=== PATIENT | female | born 1955 | race Caucasian/White ===

== ENCOUNTER 2024-12-11 15:27 | Inpatient (IN) | payer MEDICARE, SELFPAY ==
[2024-12-11] VITALS (9 sets, daily range): BP systolic 112–140; BP diastolic 71–87; BMI 20.1; BMI 20.3
[2024-12-11 11:28] LABS: Hematocrit 42.8 % (37.0-47.0); Hemoglobin 14.4 g/dL (12.0-16.0); Mean Corp Hgb Conc. 33.6 g/dL (33.0-37.0); Mean Corpuscular Hgb 29.9 pg (27.0-31.0); Mean Corpuscular Volume 88.8 fL (81.0-99.0); Mean Platelet Volume 9.9 fL (7.4-10.4); Platelet Count 280 10^3/uL (130-400); Red Blood Cell Count 4.82 10^6/uL (4.20-5.40); Red Cell Dist. Width 12.8 % (11.5-14.5); White Blood Cell Count 26.2 10^3/uL (4.8-10.8)
[2024-12-11 11:38] LABS: % Basophils 0.3 % (0-2); % Lymphocytes 3.6 % (20.5-51.1); % Monocytes 4.4 % (1.7-9.3); % Neutrophils 88.7 % (42.2-75.2); Absolute Basophils 0.1 10^3/uL (0-0.2); Absolute Immature Granulocytes 0.8 10^3/uL (0-0.05); Absolute Monocytes 1.1 10^3/uL (0.1-0.6); Absolute Neutrophils 23.2 10^3/uL (1.4-6.5); Nucleated Red Blood Cells % 0 %
[2024-12-11 11:42] LABS: ALT (SGPT) 31 U/L (0-35); AST (SGOT) 43 U/L (14-36); Albumin 4.8 g/dl (3.5-5.0); Alkaline Phosphatase 103 U/L (38-126); Blood Urea Nitrogen 16 mg/dl (7-17); Calcium 9.9 mg/dl (8.4-10.2); Carbon Dioxide 26 mmol/L (22-30); Estimated Creatinine Clearance 72 ml/min; Glucose 174 mg/dl (70-99); Potassium 3.4 mmol/L (3.5-5.1); Sodium 142 mmol/L (135-145); Total Bilirubin 1.2 mg/dl (0.2-1.3); Total Protein 7.5 g/dl (6.3-8.2); eGFR > 60.00
[2024-12-11] MEDS: ATIVAN 1 MG IV (12:06)
--- NOTE | 2024-12-11 12:06 | ED.GENMED ---
History of Present Illness
General
Chief Complaint: Seizure
Source: care program resident
Time Seen by Provider: 12/11/24 11:14
History of Present Illness
History of Present Illness:
69-year-old female with past medical history of dementia presenting to the ER via EMS from home with caregiver who is also power of family law attorney after patient reportedly had a seizure where the caregiver describes the patient staring into the distance,
falling to the ground and becoming very rigid with symptoms lasting about for 5 minutes and resolving spontaneously however patient with a continued postictal state. Caregiver notes that patient first had this seizure-like activity a little over 3
months ago and was seen at [facility] where workup was completed and patient discharged home on antiseizure medications however due to her dementia/chronic medical condition is not able to tolerate any oral medication and caregiver has been
unable to give the patient's the usual medication. Caregiver notes that patient was in her otherwise usual state of health prior to the seizure today. No reported fevers. Caregiver does note that they were unable to get an MRI at [place] due to
patient's inability to cooperate and they ultimately decided to not pursue any further testing as caregiver did not feel patient would be able to tolerate further testing
Past History
Past History
ED Past Medical History: Psychiatric (depression) and Other (osteoarthritis)
ED Past Surgical History: and Orthopedic (bilateral hip replacements.)
Patient has exhibited threatening behavior?: No
Social History
Tobacco: Non-smoker
Alcohol: None
Drug: None
Personal:
Living: other (Caregiver)
Review of Systems
Review of Systems
All Other Systems: ROS reviewed and negative except as documented in HPI and ROS
Phy Exam
Physical Exam
Physical Exam:
GENERAL: Alert , in no apparent distress., Non cooperative, does not answer any questions but is reportedly at baseline per caregiver
HEAD: Normocephalic atraumatic
EYE: Clear conjunctiva
NECK: Supple
ENT: o/p clr, mmm. Small superficial laceration to right anterolateral tongue without any active bleeding, dried blood around the lips
CARDIAC: tachycardic rate and rhythm
LUNGS: Clear breath sounds bilaterally, no acute respiratory distress, no wheezes/rales/rhonchi
ABDOMEN: Soft, without focal tenderness, no r/g, no cvat
NEUROLOGICAL: Alert but unable to assess orientation, does not follow commands
SKIN: Warm and dry, skin intact.
MUSCULOSKELETAL: No edema, well perfused.
PSYCH: Normal and appropriate interaction.
Scores
Heart Failure Risk
Heart Failure Risk Score: Not Applicable
Heart Score for Chest Pain Patients
STEMI patient?: Not applicable
Withdrawal Assessment of Alcohol
Withdrawal Assessment Completed?: Not applicable
Course
Orders/Labs/Results
Orders:
Orders
12/11/24 11:11
EKG [Electrocardiogram (*1)] Urgent
Reason for Study: Other
Other Reason for Exam: seizure
EKG- Treatment ONCE
12/11/24 11:15
CMP [Comprehensive Metabolic Panel] Urgent
Complete Blood Count/With Diff Urgent
12/11/24 11:29
0.9% Sodium Chloride 1000 ml [Nss] 1,000 ml IV BOLUS
12/11/24 11:51
Lorazepam [Ativan] 1 mg IV NOW STA
12/11/24 11:52
CR Chest Portable - 1 View Urgent
Comment:
Reason For Exam: seizure, WBC 26, ? bacteremia, dementia
Reason Study Needs to be Portable: Unable to Transport
12/11/24 12:03
Lactic Acid Q4H
Comment: CANCEL 2nd LACTIC ACID IF 1st LACTIC ACID IS LESS THAN 2
Blood Culture Q30M
GARY Source: Blood/Venous
Specimen Description:
Blood Culture Q30M
GARY Source: Blood/Venous
Specimen Description:
12/11/24 13:24
Urinalysis Reflex To Culture Urgent
Date Specimen was Collected: 12/11/24
Time Specimen was Collected: 13:22
Urine Microscopic Reflex Cult Urgent
12/11/24 13:48
Cefepime HCl [Maxipime] 2,000 mg IV NOW STA
Vancomycin [Vancocin] 1,500 mg 0.9% Sodium Chloride 500 ml [Nss] 500 ml IV NOW
12/11/24 16:00
Lactic Acid Q4H
Comment: CANCEL 2nd LACTIC ACID IF 1st LACTIC ACID IS LESS THAN 2
Abnormal Lab Results
12/11/24 12/11/24
11:15 13:24
WBC 26.2 H 10^3/uL
(4.8-10.8)
Abs Immat Gran (auto) 0.8 H 10^3/uL
(0-0.05)
Absolute Neuts (auto) 23.2 H 10^3/uL
(1.4-6.5)
Absolute Lymphs (auto) 1.0 L 10^3/uL
(1.2-3.4)
Absolute Monos (auto) 1.1 H 10^3/uL
(0.1-0.6)
Immature Gran % 3.0 H %
(0-0.5)
Neutrophils % 88.7 H %
(42.2-75.2)
Lymphocytes % 3.6 L %
(20.5-51.1)
Potassium 3.4 L mmol/L
(3.5-5.1)
Glucose 174 H mg/dl
(70-99)
AST 43 H U/L
(14-36)
Urine Ketones 3+ A
(Negative)
Ur Occult Blood Reflex 1+ A
(Negative)
Urine RBC 3-6 A /HPF
(0-2)
Urine Bacteria (Reflex) Few A
(Negative)
Urine Albumin (Reflex) 2+ A
(Neg - Trace)
12/11/24 11:15
12/11/24 11:15
Vital Signs
Initial and Last Documented VS:
Initial Vital Signs
Pulse Resp
115 15
12/11/24 10:56 12/11/24 10:56
Last Documented Vital Signs
Temp Pulse Resp BP Pulse Ox
97.5 F 139 41 133/72 92
12/11/24 11:07 12/11/24 13:15 12/11/24 13:15 12/11/24 12:00 12/11/24 11:16
MDM/Problems Addressed
Differential Diagnosis Includes:
Seizure, electrolyte derangement, infectious etiology, malignancy, intracranial bleeding
MDM/Problems Addressed:
69-year-old female presenting to the emergency department for evaluation of reported seizure-like activity prior to arrival, newly diagnosed suspected seizure disorder from a few months ago but unable to tolerate medications per caregiver.
Reportedly at her baseline presently but due to her agitation/dementia is uncooperative with the exam and unable to follow commands. She does appear to have a superficial tongue laceration but difficult to evaluate as patient will not open her
mouth and attempting to hit staff and bite staff. There does not appear to be any active bleeding at this time. Caregiver would like to forego CAT scan imaging. Agreeable to labs and requesting fluids be given. Disposition pending
Chronic conditions affecting care: Neurological disorder
Acute Exacerbation and/or Progression of Chronic Illness: Neurological disorder
*Radiology
Radiology exam reviewed: radiology read reviewed
*Pulse Oximetry
Patient hypoxic: yes
*EKG
Heart Rate: 114
Rate: tachycardiac
Rhythm: sinus
[place]: normal axis
Ischemia: non-specific ST changes
*Rodent Control Worker Interpretation
Rate: tachycardiac
Rhythm: sinus
*Critical Care Note
Total Time (30-74mins, 75-104mins- exclusive of procedures): Not Applicable
Comment
Comment:
Patient has a leukocytosis of 26,000. There is also a leftward shift. Caregiver notes that patient was diagnosed with a questionable urinary tract infection while admitted at [place] but was unable to finish the oral antibiotics as again she is
not able to tolerate pills nor liquid. Reviewed sepsis/infectious protocol with caregiver who ultimately requested that we work the patient up fully for infection. Blood cultures, lactic acid, urine and chest x-ray ordered. Anticipate patient
will need admission
Patient Management
Discussion with other providers: Hospitalist
Escalation/DeEscalation of care consider admission/obs:
Patient's chest x-ray appears to show a bilateral lower lung pneumonia. Given her continued tachycardia combined with her leukocytosis, age and chronic medical conditions we will plan for admission for IV antibiotics. Caregivers are in agreement
with this plan. Hospitalist team accepts for continued evaluation and treatment.
ED Attending Note
-
Portions of this chart may have been created with voice recognition software.� Occasional wrong word or��sound alike� substitutions may have occurred due to the inherent limitations of voice recognition software.
Discharge Plan
Departure
Patient Disposition: Admit
Date of Disposition: 12/11/24
Time of Disposition: 13:55
Presentation/result/management discussed w/ accepting MD/DO: Hospitalist
Discharge Problem:
Pneumonia, Seizure
Prescriptions:
No Action
melatonin 3 MG tablet
3 mg PO HS 0RF
Ibuprofen
200 mg PO Q6H PRN (Reason: pain)
doxycycline hyclate 100 MG capsule
100 mg PO Q12 Qty: 20 0RF
Referrals:
Gamaliel Jeter MD [Family Provider] -
Interventions
Interventions:
*General Assessment Last Done: 12/11/24 11:07
*Neglect/Abuse Screening Last Done: 12/11/24 11:07
*ED- Fall Risk Assessment Last Done: 12/11/24 11:21
*ED COVID-19 Vaccine History Last Done: 12/11/24 11:23
ED- Cardiac Assessment Last Done: 12/11/24 11:16
ED- Neurological Assessment Last Done: 12/11/24 11:16
ED- Pulmonary Assessment Last Done: 12/11/24 11:16
Discharge Date and Time
Print Language: AUSTRIAN
[2024-12-11] MEDS: NSS 1000 IV ×2 (12:08→20:23)
[2024-12-11 12:14] LABS: Chloride 104 mmol/L (98-107)
[2024-12-11 13:29] LABS: Lactic Acid 1.6 mmol/L (0.7-2.0)
[2024-12-11 13:44] LABS: Urine Albumin 2+ (Neg - Trace); Urine Bilirubin Negative (Negative); Urine Character Clear (Clear); Urine Color Yellow; Urine Glucose Negative (Negative); Urine Ketone 3+ (Negative); Urine Leukocyte Negative (Negative); Urine Nitrite Negative (Negative); Urine Occult Blood 1+ (Negative); Urine Specific Gravity 1.015 (<1.030); Urine Urobilinogen Negative (Neg - 1+)
[2024-12-11 13:55] LABS: Urine Mucus Moderate; Urine Red Cell Cast 0-2 /LPF
[2024-12-11 13:56] LABS: Urine Bacteria Few (Negative); Urine White Cell 0-2 /HPF (0-5)
--- NOTE | 2024-12-11 14:08 | HPS.HSE ---
Family Physician
-
Family Physician: Gamaliel Jeter
Chief Complaint
-
seizure
History of Present Illness
Patient is a 69-year-old female with past medical history significant for dementia and anxiety/depression who presented to [facility] ED from home with caregiver/POA for evaluation of patient staring into the distance, falling to the ground
and becoming very rigid with symptoms lasting about 5 minutes and resolving spontaneously. Patients caregiver at bedside who states patient has had no signs or symptoms of infection and is able to eat and drink normally with no concern of
aspiration. He reports hospitalization in [facility] in August where patient was diagnosed with seizures. Patient has been displaying refusal like behavior with any oral medications in pill or liquid form so patient has not received any antiseizure
medication s/p discharge in August.
Medical History
Past Medical History
Past Medical History: Reports Other
Additional Past Medical History:
dementia
anxiety/depression
Past Surgical History: Reports Other
Additional Past Surgical History:
[id number]
x 3
hip fracture
[id number]-06/27/19-CBB
Social History
Unable to obtain full social history at this time due to: Dementia
Tobacco: Non-smoker
Alcohol: None
Drug: None
Family History
Family History: Not pertinent
Allergies / Home Medications
Allergies reflects when Allergies were last updated in [employer].
Home Medications with original date entered in [employer]
Allergy/Medication List:
Allergies
Allergy/AdvReac Type Severity Reaction Status Date / Time
Penicillins AdvReac Unknown Unknown Unverified 12/11/24 14:50
Home Medications
No Meds [No Current Medications] 12/11/24
Review of Systems
-
Unable to obtain full review of systems at this time due to: Dementia
Neurological: Reports Other (staring into distance, fall and very rigid)
Physical Exam
Vital Signs
Vital Signs
Temp Pulse Resp BP Pulse Ox
97.5 F 139 41 133/72 92
12/11/24 11:07 12/11/24 13:15 12/11/24 13:15 12/11/24 12:00 12/11/24 11:16
Physical Exam
General: Well Developed, Well Nourished, No Apparent Distress and Comfortable
HEENT: NormoCephalic, Moist mucous membranes, Atraumatic, [place] Conjunctivae, Nose Appears Normal and Ears Appear Normal
Respiratory: Clear and Non Labored Respirations
Cardiac: S1/S2 and Regular Rhythm; No Murmur, Rub or Gallop
GI: Soft, Non Tender, Non Distended and Normal Bowel Sounds; No Organomegaly
Rectal: Deferred by Provider
Genito-urinary: Deferred by me
Musculoskeletal: No Clubbing, No Cyanosis and No Edema
Skin: IV/Catheter Site
Neuro: Awake and Nonfocal/grossly intact
Psych: Calm
Laboratory Results
-
12/11/24 11:15
12/11/24 11:15
Laboratory Results
Lactic Acid 1.6 mmol/L (0.7-2.0) 12/11/24 12:03
Total Bilirubin 1.2 mg/dl (0.2-1.3) 12/11/24 11:15
AST 43 U/L (14-36) H 12/11/24 11:15
ALT 31 U/L (0-35) 12/11/24 11:15
Alkaline Phosphatase 103 U/L (38-126) 12/11/24 11:15
Data Reviewed
-
Diagnostic Radiology: Report Reviewed by me (CXR: 1. SEVERE BILATERAL LOWER LOBE PNEUMONIA (possibly aspiration pneumonia). 2. Mild elevation of the right hemidiaphragm.)
Medical Tests (Nuc Med, Echo, EKG etc): Report Reviewed by me (EKG: SINUS TACHYCARDIA NONSPECIFIC ST ABNORMALITY)
Lab Data: Labs Reviewed by me (WBC 26.2, Neuts 88.7)
Impression/Plan
-
IMPRESSION/PLAN:
#pneumonia likely 2/2 aspiration
WBC 26.2, Neut 88.7, Lactic 1.6
Blood Cx: Pending
Covid: pending
Influenza: pending
CXR: 1. SEVERE BILATERAL LOWER LOBE PNEUMONIA (possibly aspiration pneumonia).
2. Mild elevation of the right hemidiaphragm.
- Admit to telemetry
- IV antibiotics
- supportive care
- Speech evaluation for potential aspiration
- Allow regular diet
#seizures
POA reports patient will not take PO medications at discharge
will hold medications
#dementia
#anxiety/depression
Code status: DNR
DVT Prophylaxis: Lovenox Sq
[2024-12-11] MEDS: MAXIPIME 2000 MG IV (14:34)
--- NOTE | 2024-12-11 15:11 | W.PN.UPDATE ---
Update Note
Progress Note Update
This is an addendum to the H&P written by Sushma Cuevsa on 12/11/2024.� Patient seen examined independently with ARTIST AND REPERTOIRE MANAGER.
69-year-old female past medical history of severe dementia, osteoarthritis, anxiety/depression, presenting after patient had a seizure described as patient staring into the distance, falling to the ground and very rigid lasting for 5 minutes
spontaneously resolved postictal state.� Patient had seizure-like activity 3 months ago with negative workup and sent home on antiseizure medication liquid valproic acid although due to dementia and patient refusing all medications, cannot swallow
oral tablets, although she is swallowing food and liquids fine.� Refusing all medications.�
Vitals show sinus tachycardia.
Labs show leukocytosis of 26.� Potassium 3.4.� Chest x-ray shows severe bilateral lower lobe pneumonia likely due to aspiration.
Patient with second seizure episode due to antiseizure noncompliance.� Also with evidence of sepsis secondary to aspiration pneumonia.
Son refused CT scan of the head.� He states that she will not be compliant with liquid valproic acid after diacharge.�
IV fluids.� Zosyn for aspiration pneumonia.� Son is okay with regular diet, will continue for now.� Check speech and swallow evaluation.
[2024-12-11 15:34] LABS: COVID-19 Antigen Negative (Negative)
[2024-12-11] MEDS: VANCOCIN 530 MG IV (15:48)
[2024-12-11] MEDS: LOVENOX 40 MG SC (20:24)
[2024-12-11] MEDS: KCL 160 MEQ IV (20:24)
[2024-12-11] MEDS: ZOSYN 100 IV (21:20)
[2024-12-12] MEDS: ZOSYN 100 IV (02:51)
[2024-12-12 03:36] VITALS: BP 131/70
[2024-12-12 03:37] VITALS: BMI 19.8
[2024-12-12 07:15] VITALS: BP 130/78
[2024-12-12 07:35] LABS: Hematocrit 37.8 % (37.0-47.0); Hemoglobin 13.1 g/dL (12.0-16.0); Mean Corp Hgb Conc. 34.7 g/dL (33.0-37.0); Mean Corpuscular Volume 86.7 fL (81.0-99.0); Red Blood Cell Count 4.36 10^6/uL (4.20-5.40); Red Cell Dist. Width 12.9 % (11.5-14.5); White Blood Cell Count 11.9 10^3/uL (4.8-10.8)
[2024-12-12 07:48] LABS: Mean Platelet Volume 10.9 fL (7.4-10.4); Platelet Count 199 10^3/uL (130-400)
--- NOTE | 2024-12-12 08:26 | W.PN.HOSP.TC ---
Today's Communication/Plan
-
See PN
Assessment / Plan
Assessment / Plan
69yo F with PMHX of anxiety, seizure d/o, Alzheimer dementia, advanced brought from home by caregiver (POA) after seizure activity. Was diagnosed with seizures in [place] in Aug 2024, but since POA wants only non-invasive medical mgmt - no further
workup was done as per him. Patient was d/c on AED, however she was decliningn her home meds for quite some time even beforre that due to advanced dementia. On admission patient found b/l pneumonia, possibly aspiration.
A/P:
#b/l pneumonia
Check legionella/S.pneumonia urinary Ag
COVID-19 and influenza PCR neg
Unasyn
Speech therapy
wean off O2
#Breakthrough seizures with seizure d/o
declined AED
#Alzheimer dementia
#GOC
discussed termite exterminator mgmt with POA in detals. Agreed that since patient declines home medications - she can be candidate for home hospice. Due to advanced dementia POA in agreement to limit interventions to non-invasive mgmt only, cont DNR. Hospice
consult by CM. Goal to stabilize patient, treat acute pneumonia and d/c home for possible hospice, as no appropriate termite exterminator plan possible since patient declined oral medication in spite of multiple attempts from caregiver to administer it. In
agreemtn that home infusions will not be an option, since will not improve quality of life, but introduce new risks with IV line that can be infected, self-removed in this patient with advanced dementia
Reasonable to discontinue telemetry as also requested by POA
#Breakthrough seizures
Seizure precautions
DVT ppx lovenox
DNR/DNI
I have spent at least 59min reviewing chart, test results, communication with POA and providing direct patient care
Anticipated Discharge: > 48 hours
Subjective/Interval History
-
Date of Service: December 12, 2024
Objective Data
-
Labs:
Laboratory Results
12/12/24 12/12/24
06:27 07:32
WBC 11.9 H
Hgb 13.1
Hct 37.8
Plt Count 199 D
Sodium Cancelled Pending
Potassium Cancelled Pending
Chloride Cancelled Pending
Carbon Dioxide Cancelled Pending
BUN Cancelled Pending
Creatinine Cancelled Pending
Glucose Cancelled Pending
Calcium Cancelled Pending
Vital Signs:
Vital Signs
Temp Pulse Resp BP Pulse Ox
99.6 F 110 16 130/78 95
12/12/24 07:15 12/12/24 07:15 12/12/24 07:15 12/12/24 07:15 12/12/24 07:15
Review of Systems
-
Unable to obtain full review of systems at this time due to: Dementia
History Source: Family
Physical Exam
-
General: No Apparent Distress
HEENT: Normocephalic
Respiratory: Clear to Auscultation
Cardiac: Regular Rhythm
GI: Soft, Nontender and Nondistended
Neuro: Awake and Alert
Psych: Calm and Apparent Dementia
[2024-12-12] MEDS: UNASYN IV ×3 (08:36→20:37)
--- NOTE | 2024-12-12 10:49 | PTOTSP ---
ST Acute Care Evaluation
Pt currently presents with fairly functional oropharyngeal parameters for thin liquids, but clinical signs of epigastric discomfort after ingestion of thin liquids that place her at a risk for retrograde aspiration. Due to pt's refusal and
discomfort, pt's tolerance for solid consistencies could not be assessed during this session.
Recommendations:
- Continue with thin liquids
- Continue with aspiration and GERD precautions: HOB upright for ALL PO intake and for at least 60 minutes after PO intake; encourage SLOW intake.
- Consider GI consult re: epigastric discomfort and avoidance of solid consistencies.
- CABIN SERVICE AGENT to f/u re: tolerance of thin liquids, assessment of solid consistencies, and to determine if pt would benefit from an instrumental swallow study.
[2024-12-12 11:00] VITALS: BP 125/52
[2024-12-12 11:48] LABS: Blood Urea Nitrogen 8 mg/dl (7-17); Calcium 9.3 mg/dl (8.4-10.2); Carbon Dioxide 26 mmol/L (22-30); Chloride 105 mmol/L (98-107); Estimated Creatinine Clearance 71 ml/min; Glucose 109 mg/dl (70-99); Potassium 3.4 mmol/L (3.5-5.1); Sodium 138 mmol/L (135-145); eGFR > 60.00
[2024-12-12 12:27] LABS: Magnesium 1.8 mg/dl (1.6-2.3)
[2024-12-12] MEDS: NSS IV (12:55)
[2024-12-12] MEDS: KCL 160 MEQ IV (12:55)
[2024-12-12 15:05] VITALS: BP 149/84
[2024-12-12 15:39] VITALS: BMI 19.8
--- NOTE | 2024-12-12 16:36 | CM ---
Received consult for hospice. Placed a call to Deon, patient's friend and poa. He stated that patient lives with her in a single two story home with two steps to enter. He has caregivers for 25 hrs a week and he assists with all ADLs and personal
care. Patient's friend stated that he would like Hospice. Referral sent to Hospice.
Plan: Case management will continue to follow and assist with discharge planning. Home with hospice.
[2024-12-12] MEDS: LOVENOX 40 MG SC (17:28)
[2024-12-12 19:00] VITALS: BP 130/89
--- NOTE | 2024-12-12 20:07 | HOSPNOTE ---
Referral received. Attempted to call Deon to discuss home hospice. Voicemail left. Will await return call. More information to follow.
[2024-12-12 23:00] VITALS: BP 143/90
[2024-12-13] MEDS: UNASYN IV ×2 (03:06→08:40)
[2024-12-13 06:00] VITALS: BMI 20.3
[2024-12-13 07:05] VITALS: BP 124/73
--- NOTE | 2024-12-13 09:24 | PHA.VAN.IN ---
Assessment
- Assessment
Renal Function: Appears similar to baseline (labs not yet collected this AM)
Concomitant Antimicrobials: piperacillin/tazobactam
AUC Dosing Plan
- Dosing Variables
Dosing Weight (kg): 55
Dosing CrCl (ml/min): 72
Vd coefficient (L/kg): 0.7
- Empiric Dosing
Initial / Loading Dose: 1500mg - 12/11 15:48
Maintenance Regimen: Vanc 500mg Q12H - first dose this AM then 1800
Estimated AUC (mcg*h/mL): 423
Estimated Peak (mcg*h/mL): 24.4
Estimated Trough (mcg/ml): 12.2
Estimated Half Life (H): 10.9
- Monitoring
No levels ordered at this time: consider levels in next few days
Pharmacokinetics Vancomycin I
- -
Patient Age: 69
Patient Sex: Female
Vancomycin Day #: 1
Indication: Bacteremia
Requesting Provider: Dr. Nathan
Pertinent Antimicrobial Allergies:
penicillins - unknown, occurred when she was young
Height / Weight:
Height 5 ft 4 in
Actual Weight 52.163 kg
IBW in k.7
Pertinent Past Medical History: BMI ~19.7
- Vital Signs / Lab Results
Temp Pulse Resp BP Pulse Ox
98.9 F 103 17 124/73 96
12/13/24 07:05 12/13/24 07:05 12/13/24 07:05 12/13/24 07:05 12/13/24 07:05
Lab Results - Hematology
12/11/24 12/12/24
11:15 06:27
WBC 26.2 H 11.9 H
Lab Results - Chemistry
12/11/24 12/12/24 12/12/24
11:15 06:27 11:13
BUN 16 Cancelled 8
Creatinine 0.6 Cancelled 0.6
Estimated Creat Clear 72 Cancelled 71
Albumin 4.8
12/11/24 12/11/24
12:03 16:00
Lactic Acid 1.6 Cancelled
Lab Results - Urine
12/11/24
13:24
Urine Nitrite (Reflex) Negative
Leukocyte Esterase Rfl Negative
Urine WBC (Reflex) 0-2
Ur Squamous Epith Cells 3-5
Urine Bacteria (Reflex) Few A
Microbiology Results
12/11/24 12:03 Blood Culture - Preliminary
Blood/Venous Positive culture in progress
Gram Stain - Preliminary
12/11/24 12:03 Blood Culture - Preliminary
Blood/Venous No Growth in 24 hours- Final report to follow
12/11/24 15:01 Influenza Types A & B (ANCELMO) - Final
Nasal Swab Negative for Influenza A & B, NAAT
Negative results must be combined with clinical observations
and patient history.
Nucleic Acid Amplification test (NAAT)performed on the
[employer] platform.
[2024-12-13] MEDS: D5/0.9% SODIUM CHLORIDE 1000 IV ×2 (09:44→16:57)
[2024-12-13] MEDS: ZOSYN 50 IV ×3 (09:45→21:54)
--- NOTE | 2024-12-13 10:01 | HOSPNOTE ---
Spoke with caregiver Deon and the patient will be discharged home on Wednesday with hospice services. The patient will need transport and OOH DNR needed on chart. Equipment was ordered and will be delivered. Attending and CM aware of plan. Deon is in
agreement with hospice and the philosophy.
--- NOTE | 2024-12-13 10:29 | W.PN.HOSP.TC ---
Today's Communication/Plan
-
IVF and Abx bridging to home hospice planned for 12/15/24
Assessment / Plan
Assessment / Plan
69yo F with PMHX of anxiety, seizure d/o, Alzheimer dementia, advanced brought from home by caregiver (POA) after seizure activity. Was diagnosed with seizures in [place] in Aug 2024, but since POA wants only non-invasive medical mgmt - no further
workup was done as per him. Patient was d/c on AED, however she was decliningn her home meds for quite some time even beforre that due to advanced dementia. On admission patient found b/l pneumonia, possibly aspiration. One set of Bcx positive for
coagulase neg staph - suspect contamination. POA will plan on home hospice due to futility of the management with prolonged patient non-compliance with oral medication intake (since Aug 25 2024) and poor tolerance of the imaging studies
A/P:
#b/l pneumonia
Check legionella/S.pneumonia urinary Ag
COVID-19 and influenza PCR neg
Unasyn
Speech therapy
wean off O2
#Breakthrough seizures with seizure d/o
declined AED
#Alzheimer dementia
#GOC
discussed machine long goods helper mgmt with POA in detals. Agreed that since patient declines home medications - she can be candidate for home hospice. Due to advanced dementia POA in agreement to limit interventions to non-invasive mgmt only, cont DNR. Hospice
consult by CM. Goal to stabilize patient, treat acute pneumonia and d/c home for possible hospice, as no appropriate penitentiary plan possible since patient declined oral medication in spite of multiple attempts from caregiver to administer it. In
agreement that home infusions will not be an option, since will not improve quality of life, but introduce new risks with IV line that can be infected, self-removed in this patient with advanced dementia. POA inquired of possible upper endoscopy,
after discussion about risks of the procedure, involved anesthesia and need in imaging - he declined additional studies to avoid patient discomfort. He was absolutely declining CT scan since previously it caused a lot of distress to the patient.
This is reasonable and appropriate approach in my medical opinion as with prolonged refusal of oral meds and advanced dementia - benefits are minimal. Especially as POA confirmed non-invasive approach
Reasonable to discontinue telemetry as also requested by POA
Started IVF as per family request to bridge to discharge date
#Blood culture contamination
cont abx as per family request until d/c home with hospice
#Breakthrough seizures
Seizure precautions
DVT ppx lovenox
DNR/DNI
I have spent at least 55min reviewing chart, test results, communication with POA and providing direct patient care
Anticipated Discharge: > 48 hours
Subjective/Interval History
-
Date of Service: December 13, 2024
Objective Data
-
Labs:
Laboratory Results
12/13/24
09:55
WBC Pending
Hgb Pending
Hct Pending
Plt Count Pending
Sodium Pending
Potassium Pending
Chloride Pending
Carbon Dioxide Pending
BUN Pending
Creatinine Pending
Glucose Pending
Calcium Pending
Vital Signs:
Vital Signs
Temp Pulse Resp BP Pulse Ox
98.9 F 103 17 124/73 96
12/13/24 07:05 12/13/24 07:05 12/13/24 07:05 12/13/24 07:05 12/13/24 08:15
I&O
12/12/24 12/13/24 12/14/24
06:59 06:59 06:59
Intake Total 240 / 240
Balance 240 / 240
Review of Systems
-
History Source: Patient
All other systems: Reviewed and negative
[2024-12-13 10:31] LABS: % Basophils 0.5 % (0-2); % Immature Granulocytes 0.5 % (0-0.5); % Lymphocytes 9.9 % (20.5-51.1); % Monocytes 7.4 % (1.7-9.3); % Neutrophils 80.7 % (42.2-75.2); Absolute Basophils 0.1 10^3/uL (0-0.2); Absolute Eosinophils 0.1 10^3/uL (0-0.7); Absolute Immature Granulocytes 0.1 10^3/uL (0-0.05); Absolute Lymphocytes 1.1 10^3/uL (1.2-3.4); Absolute Monocytes 0.8 10^3/uL (0.1-0.6); Absolute Neutrophils 8.9 10^3/uL (1.4-6.5); Hematocrit 42.2 % (37.0-47.0); Hemoglobin 14.3 g/dL (12.0-16.0); Mean Corp Hgb Conc. 33.9 g/dL (33.0-37.0); Mean Corpuscular Hgb 29.9 pg (27.0-31.0); Mean Corpuscular Volume 88.3 fL (81.0-99.0); Mean Platelet Volume 9.8 fL (7.4-10.4); Nucleated Red Blood Cells % 0 %; Platelet Count 188 10^3/uL (130-400); Red Blood Cell Count 4.78 10^6/uL (4.20-5.40); Red Cell Dist. Width 12.9 % (11.5-14.5)
[2024-12-13 11:10] LABS: Blood Urea Nitrogen 5 mg/dl (7-17); Carbon Dioxide 24 mmol/L (22-30); Chloride 105 mmol/L (98-107); Estimated Creatinine Clearance 73 ml/min; Glucose 96 mg/dl (70-99); Potassium 3.3 mmol/L (3.5-5.1); Sodium 139 mmol/L (135-145); eGFR > 60.00
[2024-12-13] MEDS: KCL 160 MEQ IV (11:50)
[2024-12-13 15:05] VITALS: BP 119/75
[2024-12-13] MEDS: LOVENOX 40 MG SC (17:00)
--- NOTE | 2024-12-13 22:00 | PTCARENOTE ---
Upon rounds, pt found sitting on the bedside w/caregiver Deon present. Caregiver states pt just had an anxiety attack. Pt without O2 on appeared SOB. Deon states her oxygen is fine. Spot checked SpO2 84% on room air. Oxygen replaced, SpO2 94%
on 3L. Instucted on importance of keeping oxygen in place and how hypoxia can increase agitation/restlessness. Deon verbalizes 'sometime she just needs a break'
[2024-12-13 23:00] VITALS: BP 125/83
--- NOTE | 2024-12-14 02:11 | PTCARENOTE ---
Hourly rounding completed w/PCT. Caregiver asleep at bedside. Explained wanted to see if check if pt was wet. Deon states 'I just checked, she's dry' Pt's brief saturated and covidien w/urine. Incontinence care completed at this time w/PCT.
[2024-12-14] MEDS: ZOSYN 50 IV ×4 (05:08→22:03)
[2024-12-14 07:21] VITALS: BP 112/65
--- NOTE | 2024-12-14 09:52 | HOSPNOTE ---
The plan is for patient to return home tomorrow 12/15. Equipment was ordered and transport was requested around 11am. OOH DNR needed on chart. Once patient is home we will admit onto our service. Attending and CM aware of plan.
--- NOTE | 2024-12-14 10:12 | CM ---
Spoke with Nishi COURTNEY, hospice liason, who stated that she would like for patient to be discharged tomorrow 13:00. Will complete paperwork for transfer and update [facility].
Plan: Case management will continue to follow and assist with discharge planning. Home on hospice.
[2024-12-14] MEDS: D5/0.9% SODIUM CHLORIDE 1000 IV (10:20)
--- NOTE | 2024-12-14 10:25 | W.PN.HOSP.TC ---
Addendum entered and electronically signed by Rebecca Michaud MD 12/14/24 13:21:
Addendum
Discussed with case management. Requested POA to bring papers to be scanned in the system.
Constipation, will give Dulcolax suppository
And
Original Note:
Today's Communication/Plan
-
dc plan
Add PRN IV Toradol
PRN IV Ativan for breakthrough seizure
Assessment / Plan
Assessment / Plan
Physical Exam
General: No Apparent Distress and Comfortable
HEENT: Normocephalic, Moist mucous membranes, Atraumatic, [place] Conjunctivae, Nose Appears Normal and Ears Appear Normal
Respiratory:Rales
Cardiac: S1/S2
GI: Soft, Non Tender, Non Distended and Normal Bowel Sounds.
Rectal: no bleeding
Genito-urinary: no hematuria
Musculoskeletal: No Clubbing, No Cyanosis and No Edema
Skin: IV/Catheter Site
Neuro: Awake, confused, does not follow commands..
Psych: Calm
69yo F with PMHX of anxiety, seizure d/o, Alzheimer dementia, advanced brought from home by caregiver (POA) after seizure activity. Was diagnosed with seizures in [place] in Aug 2024, but since POA wants only non-invasive medical mgmt - no further
workup was done as per him. Patient was d/c on AED, however she was declining her home meds for quite some time even before that due to advanced dementia. On admission patient found b/l pneumonia, possibly aspiration. One set of Bcx positive for
coagulase neg staph - suspect contamination. POA will plan on home hospice due to futility of the management with prolonged patient non-compliance with oral medication intake (since Aug 25 2024) and poor tolerance of the imaging studies
A/P:
#b/l pneumonia likely aspiration pNA
# Acute hypoxic respiratory failure
Still on oxygen at 3 liters
No worsening cough or sob
COVID-19 and influenza PCR neg
Unasyn IV
Speech therapy, ok for diet
wean off O2
#Breakthrough seizures with seizure d/o
declined AED
#Alzheimer dementia
Advanced, unable to express herself, did not follow commands. Very challenging to elicit history as she says yes and no to same questions.
# Chest wall pain after seizure
c/w Tylenol
Give Toradol IV PRN
#GOC
Dr Nathan discussed candle maker mgmt with POA in detals. Agreed that since patient declines home medications - she can be candidate for home hospice. Due to advanced dementia POA in agreement to limit interventions to non-invasive mgmt only, cont
DNR. Hospice consult by CM. Goal to stabilize patient, treat acute pneumonia and d/c home for possible hospice, as no appropriate care home plan possible since patient declined oral medication in spite of multiple attempts from caregiver to
administer it. In agreement that home infusions will not be an option, since will not improve quality of life, but introduce new risks with IV line that can be infected, self-removed in this patient with advanced dementia. POA inquired of possible
upper endoscopy, after discussion about risks of the procedure, involved anesthesia and need in imaging - he declined additional studies to avoid patient discomfort. He was absolutely declining CT scan since previously it caused a lot of distress to
the patient. This is reasonable and appropriate approach in my medical opinion as with prolonged refusal of oral meds and advanced dementia - benefits are minimal. Especially as POA confirmed non-invasive approach
Reasonable to discontinue telemetry as also requested by POA
Started IVF as per family request to bridge to discharge date
#Blood culture contamination
NO fevers
c/w IV ABx
Did not repeat culture due to GOC discussion
cont abx as per family request until d/c home with hospice
#Breakthrough seizures
No ton medications and no brain images done as refused by POA to focus on comfort care
Seizure precautions
DVT ppx Lovenox
DNR/DNI
I have spent at least 55min seeing pt, discussing plan of care , reviewing chart, test results, communicating casework specialist, POA and nursing staff
Anticipated Discharge: Within 24 hours
Subjective/Interval History
-
Date of Service: December 14, 2024
Deon reported chest discomfort on moving
Objective Data
-
Vital Signs:
Vital Signs
Temp Pulse Resp BP Pulse Ox
98.2 F 102 17 112/65 97
12/14/24 07:21 12/14/24 07:21 12/14/24 07:21 12/14/24 07:21 12/14/24 07:21
I&O
12/13/24 12/14/24 12/15/24
06:59 06:59 06:59
Intake Total 240 / 240 2154 / 2154
Balance 240 / 240 2154 / 2154
[2024-12-14 12:27] VITALS: BP 125/73
[2024-12-14] MEDS: D5/0.9% SODIUM CHLORIDE IV (12:43)
[2024-12-14] MEDS: DULCOLAX 10 MG RECTAL (13:47)
--- NOTE | 2024-12-14 13:57 | PN.CDI ---
Addendum entered and electronically signed by Rebecca Michaud MD 12/14/24 14:19:
My assessment is acute hypoxic respiratory failure
Please reach out to Dr. Nathan if there is a conflict or disagree with my note
Original Note:
CDI
- -
CDI:
Physician Documentation Request
Admit Date: 12/11/24 15:27
Dear Doctor Jaswant,
Please review the following and provide your response in the progress notes.
Clinical Indicators:
Documentation in the record on _12/14 PN_ includes the diagnosis of acute hypoxic respiratory failure.
- ER Physician 'Clear breath sounds bilaterally, no acute respiratory distress'
- 12/14 PN 'Acute hypoxic respiratory failure...Still on oxygen at 3 liters'
- Documented VS 2-3L O2, SpO2 > 88%
- 12/13 RN note 'SpO2 84% on room air. Oxygen replaced, SpO2 94% on 3L.'
Please clarify in the Progress Notes:
Acute hypoxic respiratory failure is/was present and is a clinical diagnosis based on (please include this additional support in the medical record)
After study acute hypoxic respiratory failure has been ruled out
Other (please specify)
Recognized standard criteria for respiratory failure includes:
(Source: [facility] Hospitalist Jul 2013)
ABGs (1 or more)
�PO2 <60 or RA SpO2 <91%
�PcO2 >50 and pH <7.35
�pO2 decrease or pcO2 increase by 10 mmHg from baseline if known Symptoms:
�Tachypnea, SOB, dyspnea
�Pallor or cyanosis
�Anxiety or restlessness
�Use of accessory muscles
�Retractions (grunting in newborns)
�Unable to speak in complete sentences
Supplemental O2 requirement of 40% (5LPM) or more Intubation is not required
Use of terms such as suspected, likely, concern for, or probable (associated with a specific diagnosis that is being evaluated, monitored, or treated as if it exists) are acceptable and can be coded in the inpatient setting, when documented at the
time of discharge.
Thank you,
Isaac Arrington RN
CDI Specialist
Please use your independent medical judgment in providing your response.
[2024-12-14 16:00] VITALS: BP 143/89
--- NOTE | 2024-12-14 16:22 | HOSPNOTE ---
POA would like to complete IV antibiotics. D/c to home with hospice now arranged for Wednesday. Attending and CM updated.
--- NOTE | 2024-12-14 16:53 | PTCARENOTE ---
Received patient as transfer from [facility]. Patient AAO to self only, restless and confused, turned and repositioned in bed, IV out of patient. New IV placed by IV nurse, brace overtop insertion site, IVF infusing. Bed alarm in place but
caregivers at bedside and planning to stay overnight. Caregiver/POA came out to nurses station and stated to this RN he feels patient has had 'big turnaround' over last 12 hours and now wishes for patient to complete IV abx course instead of being
discharged on home hospice in AM. Caregiver also requesting suppository for patient d/t no documented BM this admission. This RN communicated with MD and edge inker uppers, suppository ordered per MD and administered by this RN with large loose BM and
urine output per tech. This RN educated caregivers on keeping patient's oxygen in place, patient on IVF and wall O2 and cannot ambulate far distances d/t weakness. Caregiver verbalized understanding.
[2024-12-14] MEDS: LOVENOX 40 MG SC (17:01)
[2024-12-14] MEDS: ATIVAN 1 MG IV (18:34)
[2024-12-14] MEDS: NSS (PRESERVATIVE FREE) 0.5 ML IV (18:35)
--- NOTE | 2024-12-14 19:45 | PTCARENOTE ---
Patient restless, caregivers at bedside assisting patient into chair for short periods of time; patient AAO to self only, confused conversation, hard to redirect, pulling at O2 tubing and IV. This RN communicated with cross coverage hospitalist, one
time order for 1 mg IV ativan placed - see MAR. Patient in chair, assisted in eating small amount of dinner with caregiver at bedside.
[2024-12-14 23:32] VITALS: BP 135/87
[2024-12-15] MEDS: D5/0.9% SODIUM CHLORIDE 1000 IV ×2 (01:41→15:00)
[2024-12-15] MEDS: ZOSYN 50 IV ×4 (03:30→21:28)
[2024-12-15 07:50] VITALS: BP 127/84
--- NOTE | 2024-12-15 09:02 | W.PN.HOSP.TC ---
Today's Communication/Plan
-
Continue IV Zosyn
Continue with as needed IV Ativan
Repeat blood culture
Assessment / Plan
Assessment / Plan
Physical Exam
General: No Apparent Distress and Comfortable
HEENT: Normocephalic, Moist mucous membranes, Atraumatic, [place] Conjunctivae, Nose Appears Normal and Ears Appear Normal
Respiratory: Much less rales than yesterday
Cardiac: S1/S2
GI: Soft, Non Tender, Non Distended and Normal Bowel Sounds.
Rectal: no bleeding
Genito-urinary: no hematuria
Musculoskeletal: No Clubbing, No Cyanosis and No Edema
Skin: IV/Catheter Site
Neuro: Awake, confused, does not follow commands..
Psych: Calm
69yo F with PMHX of anxiety, seizure d/o, Alzheimer dementia, advanced brought from home by caregiver (POA) after seizure activity. Was diagnosed with seizures in [place] in Aug 2024, but since POA wants only non-invasive medical mgmt - no further
workup was done as per him. Patient was d/c on AED, however she was declining her home meds for quite some time even before that due to advanced dementia. On admission patient found b/l pneumonia, possibly aspiration. One set of Bcx positive for
coagulase neg staph - suspect contamination. POA will plan on home hospice due to futility of the management with prolonged patient non-compliance with oral medication intake (since Aug 25 2024) and poor tolerance of the imaging studies
A/P:
#b/l pneumonia likely aspiration pNA
# Acute hypoxic respiratory failure
Still on oxygen at 3 liters but lung exam is improving since yesterday.
No worsening cough or sob
COVID-19 and influenza PCR neg
Continue with IV Zosyn day # 5, she was started on IV Abx on 12/11.
Speech therapy, ok for diet
wean off O2 as tolerated
# Bacteremia, possible contaminant. Positive blood culture on December 11. Blood culture 1 bottle positive for micrococcus. ASAF Chavarria was told a follow-up blood culture would be tested. He requested repeat blood culture, Repeat is ordered.
#Breakthrough seizures with seizure d/o
declined AED
Deon asked about nasal midazolam ( was told about it in hospital) which we do not carry in the hospital. Recommended to discuss that with hospice service. Another option to uses Ativan suppository which she is usually dispensed by hospice care.
For now added as needed IV Ativan.
#Alzheimer dementia
Advanced, she is improving per caregiver, she follows simple commands.
# Chest wall pain after seizure
c/w Tylenol
Given Toradol IV PRN
#GOC
Dr Nathan discussed superintendent container terminal mgmt with POA in detals. Agreed that since patient declined home medications - she can be candidate for home hospice. Due to advanced dementia POA in agreement to limit interventions to non-invasive mgmt only, cont
DNR. Hospice consulted. Goal to stabilize patient, treat acute pneumonia and d/c home for possible hospice, as no appropriate superintendent container terminal plan possible since patient declined oral medication in spite of multiple attempts from caregiver to administer
it. In agreement that home infusions will not be an option, since will not improve quality of life, but introduce new risks with IV line that can be infected, self-removed in this patient with advanced dementia. POA inquired of possible upper
endoscopy, after discussion about risks of the procedure, involved anesthesia and need in imaging - he declined additional studies to avoid patient discomfort. He was absolutely declining CT scan since previously it caused a lot of distress to the
patient. This is reasonable and appropriate approach in my medical opinion as with prolonged refusal of oral meds and advanced dementia - benefits are minimal. Especially as POA confirmed non-invasive approach
Reasonable to discontinue telemetry as also requested by POA
Requested POA papers, submitted 12/14.
DVT ppx Lovenox
DNR/DNI
Total time spent to see the patient, examine the patient, review data and lab results, discussed treatment plan with patient, ASAF Chavarria, nursing staff around 57 minutes.
Anticipated Discharge: 24 - 48 hours
Subjective/Interval History
-
Date of Service: December 15, 2024
She denies pain or discomfort
Deon RON at the bedside reports good clinical improvement with good mentation
Objective Data
-
Vital Signs:
Vital Signs
Temp Pulse Resp BP Pulse Ox
98.9 F 109 16 127/84 98
12/15/24 07:50 12/15/24 07:50 12/15/24 07:50 12/15/24 07:50 12/15/24 07:50
I&O
12/14/24 12/15/24 12/16/24
06:59 06:59 06:59
Intake Total 2154 / 2154 1420 / 1420
Balance 215 / 2154 1420 / 1420
--- NOTE | 2024-12-15 11:31 | HOSPNOTE ---
Patient will be going home with hospice tomorrow. Equipment was ordered and will be delivered today 12/15. Once patient arrives home patient will be signed onto hospice services. Transport is scheduled for 12noon 12/16. CM and Attending aware.
--- NOTE | 2024-12-15 14:57 | CM ---
Reviewed the chart notes and spoke with POA at bedside. IMM reviewed.
Plan: Discharge to home on Hospice tomorrow.
[2024-12-15 15:34] VITALS: BP 140/87
[2024-12-15] MEDS: LOVENOX 40 MG SC (17:16)
[2024-12-15 23:37] VITALS: BP 136/74
[2024-12-16] MEDS: NSS (PRESERVATIVE FREE) 0.25 ML IV (01:14)
[2024-12-16] MEDS: ATIVAN 0.5 MG IV (01:14)
[2024-12-16] MEDS: D5/0.9% SODIUM CHLORIDE 1000 IV (04:31)
[2024-12-16] MEDS: ZOSYN 50 IV ×2 (04:31→10:18)
--- NOTE | 2024-12-16 06:53 | W.PN.HOSP.TC ---
Today's Communication/Plan
-
Discharge today
Assessment / Plan
Assessment / Plan
Physical Exam
General: No Apparent Distress and Comfortable
HEENT: Normocephalic, Moist mucous membranes, Atraumatic
Respiratory: Faint crackles bilaterally
Cardiac: S1/S2
GI: Soft, Non Tender, Non Distended and Normal Bowel Sounds.
Musculoskeletal: No Cyanosis and No Edema
Skin: Warm. Dry.
Neuro: Awake, confused, does not follow commands..
Psych: Calm
69yo F with PMHX of anxiety, seizure d/o, Alzheimer dementia, advanced brought from home by caregiver (POA) after seizure activity. Was diagnosed with seizures in [place] in Aug 2024, but since POA wanted only non-invasive medical mgmt - no further
workup was done as per him. Patient was d/c on AED, however she was declining her home meds for quite some time even before that due to advanced dementia. On admission patient found b/l pneumonia, possibly aspiration. One set of Bcx positive for
coagulase neg staph - suspect contamination. POA will plan on home hospice due to futility of the management with prolonged patient non-compliance with oral medication intake (since Aug 25 2024) and poor tolerance of the imaging studies
A/P:
#b/l pneumonia likely aspiration pNA
# Acute hypoxic respiratory failure
Now on room air oxygen
No worsening cough or sob
COVID-19 and influenza PCR neg
Continue with IV Zosyn day # 6 while in hospital, she was started on IV antibiotics on 12/11/24
Speech therapy, ok for diet
wean off O2 as tolerated
# Bacteremia, possible contaminant. Positive blood culture on December 11. Blood culture 1 bottle positive for micrococcus. ASAF Chavarria was told a follow-up blood culture would be tested. He requested repeat blood culture, Repeat is ordered and
negative so far.
#Breakthrough seizures with seizure d/o
declined AED
Deon asked about nasal midazolam ( was told about it in hospital) which we do not carry in the hospital. Recommended to discuss that with hospice service. Another option to uses Ativan suppository which she is usually dispensed by hospice care.
Patient's POA Deon inquired about non-oral anti-seizure medications, specifically Valproic Acid which was recommended to patient for seizures before, but discussed with neurology and neurology recommended Valproic Acid 500 mg BID liquid as tolerated
(platelets and AST, ALT okay in the most recent labwork done)
-Spoke with hospice nurse, plan is to use Ativan sublingual and Diazepam rectal all prn for seizure activity
#Alzheimer dementia
Advanced, she is improving per caregiver, she follows simple commands.
# Chest wall pain after seizure
c/w Tylenol
Given Toradol IV PRN
#GOC
Dr Nathan discussed [facility] mgmt with POA in [facility]. Agreed that since patient declined home medications - she can be candidate for home hospice. Due to advanced dementia POA in agreement to limit interventions to non-invasive mgmt only, cont
DNR. Hospice consulted. Goal to stabilize patient, treat acute pneumonia and d/c home for possible hospice, as no appropriate brick loader plan possible since patient declined oral medication in spite of multiple attempts from caregiver to administer
it. In agreement that home infusions will not be an option, since will not improve quality of life, but introduce new risks with IV line that can be infected, self-removed in this patient with advanced dementia. POA inquired of possible upper
endoscopy, after discussion about risks of the procedure, involved anesthesia and need in imaging - he declined additional studies to avoid patient discomfort. He was absolutely declining CT scan since previously it caused a lot of distress to the
patient. This is reasonable and appropriate approach in my medical opinion as with prolonged refusal of oral meds and advanced dementia - benefits are minimal. Especially as POA confirmed non-invasive approach
Reasonable to discontinue telemetry as also requested by POA
Requested POA papers, submitted 12/14.
DVT ppx Lovenox
DNR/DNI
More than 30 minutes spent in discharge including
Final examination of the patient
Summarizing hospital stay
Instructions for continuing care to all relevant caregivers
Preparation of discharge records, prescriptions, and referral forms
Total time spent (in minutes): 39
Anticipated Discharge: Today
Subjective/Interval History
-
Date of Service: December 16, 2024
Patient was seen and examined. No new complaints, was sitting in chair comfortably with her friend Deon at bedside.
Objective Data
-
Vital Signs:
Vital Signs
Temp Pulse Resp BP Pulse Ox
99.0 F 114 19 136/74 93
12/15/24 23:37 12/15/24 23:37 12/15/24 23:37 12/15/24 23:37 12/16/24 02:43
I&O
12/14/24 12/15/24 12/16/24
06:59 06:59 06:59
Intake Total 2155 / 2155 1420 / 1420 2480 / 2480
Balance 2155 / 2155 1420 / 1420 2480 / 2480
[2024-12-16 07:37] VITALS: BP 138/88
--- NOTE | 2024-12-16 11:35 | W.DCSUMMARY ---
Discharge Summary
Discharge Data
Date of Admission: 12/11/24
Date of Discharge: 12/16/24
Total time spent discharging patient (in min): 39
-
Pending Results: No
Hospital Course
69-year-old female with past medical history of severe dementia, osteoarthritis and anxiety/depression, presented after patient had a seizure described as patient staring into the distance, falling to the ground and very rigid lasting for 5 minutes;
spontaneously resolved with postictal state. Patient was noted to have had seizure-like activity 3 months prior with negative workup and sent home on antiseizure medication liquid valproic acid although due to dementia, patient refused all
medications, patient was noted to be unable to swallow oral tablets, although she was swallowing food and liquids okay. Patient had continued to refuse all medications. She was found to have bilateral lower lobe pneumonia, suspected secondary to
aspiration. Patient was started on intravenous fluids and Zosyn. Hospitalist discussed with patient's power of immigration attorney home with home hospice. Initial blood cultures was positive for Micrococcus which was suspected to be contamination. Repeat blood
culture was negative to date. Patient was okay for discharge to home with home hospice.
Discharge Plan
-
Patient Disposition: Home with Hospice
Discharge Diagnosis/Procedures: SEVERE BILATERAL LOWER LOBE PNEUMONIA (possibly aspiration pneumonia) -- received intravenous antibiotics from 12/11/24 to 12/16/24
Bacteremia, possible contaminant. Positive blood culture on December 11, 2024. Blood culture 1 bottle positive for micrococcus --> repeat blood culture negative so far
Mild elevation of the right hemidiaphragm
Acute Hypoxic Respiratory Failure
Breakthrough seizures with seizure disorder
Alzheimer dementia
Chest wall pain after seizure
Condition: Fair
Diet: As tolerated
Activity: As tolerated
Instructions: Valproic Acid and Derivatives
Referrals:
Gamaliel Jeter MD [Family Provider] - in less than 1 week
Additional Discharge Medication Instructions: Hospice Agency will provider hospice medications, including medications for seizure, including:
Valproic Acid LIQUID form 500 mg BID
Ativan sublingual and Diazepam rectal as needed for seizure activity
Prescriptions:
New
valproic acid 250 mg capsule
500 mg PO BID Qty: 60 0RF
Discharge Orders:
Discharge Patient (As Directed); Ordered 12/16/24
Ordered By: Chuck Eldridge
Discharge Date and Time
Discharge Date/Time: 12/16/24 12:22
Print Language: GAMBIAN
--- NOTE | 2024-12-16 14:50 | CM ---
Addendum entered by Eugenia Johnston RN 12/16/24 15:01:
OOH DNR form on chart.
Original Note:
Patient with Dx b/l pneumonia likely aspiration PNA. Room air.
Message with [facility] who confirmed they are ready for patient to be d/c home today with hospice: we are all set, equipment was delivered yesterday, local fill of medication is being picked up and our nurse will be there. [facility] was aware
of noon ambulance transport.
Met with patient and her friend Deon; both agree to d/c home today with Hospice by ambulance at noon. IMM completed. Deon confirms they have 2 steps at entrance of home and flight up to 2nd floor bedroom. He has [facility]
caregivers in place, and friends also providing care, for total of 24 hr caregiver coverage.
Plan home today with Hospice by ambulance at noon.
== END 2024-12-16 12:22 | disposition hospice, home (50) | DRG 177 ==
LOC: 2 NORTH 15:27
PROVIDERS: Internal Medicine; Nurse Practitioner Family; Physician Assistant Medical; ADMITTING PHYSICIAN Hospitalist; ATTENDING PHYSICIAN Hospitalist; EMERGENCY PHYSICIAN Emergency Medicine; FAMILY PHYSICIAN Family Medicine
DX: J69.0 Pneumonitis due to inhalation of food and vomit (principal); J96.01 Acute respiratory failure with hypoxia; Z11.52 Encounter for screening for COVID-19; G30.9 Alzheimer's disease, unspecified; F02.80 Dementia in other diseases classified elsewhere, unspecified severity, without behavioral disturbance, psychotic disturbance, mood disturbance, and anxiety; Z66 Do not resuscitate; G40.909 Epilepsy, unspecified, not intractable, without status epilepticus
CPT/HCPCS: 51701; 71045; 80048; 80053; 81003; 81015; 83605; 83735; 85025; 85027; 87040; 87150; 87205; 87502; 87811; 92526; 92610; 93005; 96361; 96374; 96375; 99285